=== PATIENT | male | born 1960 | race Caucasian/White ===

== ENCOUNTER → 2016-10-01 13:03 | Day surgery (SDC) | payer OTHER ==
[~2016-10-01 13:03] MED LIST: Buffered Lidocaine 1% SYRIN* 3 ML/SYR SYRINGE INTRADERM ONE; Bupivacaine 0.5% W/EPI SDV* 30 ML VIAL ONE; Dexamethasone IV* 4 MG/ML 1 ML (4 MG) ONE; EPHEDrine (Pressors)* 50 MG/ML VIAL ONE; HYDROcodone/ACETAMIN 5-325 MG* 1 TAB ONE; HYDROcodone/ACETAMIN 5-325 MG* 1 TAB PO PRN; HYDROmorphone* 1 MG/ML 1 ML SYR IV PRN; Lidocaine 2% PF* 5 ML VIAL ONE; Metoclopramide IV* 5 MG/ML 2 ML VIAL IV PRN; Midazolam* 1 MG/ML 2 ML VIAL (2 MG) ONE; Ondansetron INJ* 2 MG/ML VIAL ONE; Propofol* 10 MG/ML 20 ML BTL IV PUSH ONE; Scopolamine 1.5 mg* PATCH TRANSDERM PRN; Succinylcholine* 20 MG/ML 10 ML VIAL ONE; ceFAZolin 2 GM PREMIX(*) 2 GM/50 ML BAG IVPB ONE; fentaNYL* 50 MCG/ML 2 ML VIAL (100 MCG VIAL) IV PRN; fentaNYL* 50 MCG/ML 2 ML VIAL (100 MCG VIAL) ONE; oxyCODONE/Acetamin 5/325 MG* TAB PO PRN
[2016-10-01 19:28] VITALS: BP 123/81
--- NOTE | 2016-10-02 14:51 | OP ---
DATE OF OPERATION: 10/01/16 [facility] DATE OF : 58 SURGEON: Ludin Fung MD VAPOR COATER: LES Em ANESTHESIOLOGIST: Elana Sanders MD ANESTHESIA: General endotracheal. PRE-OP DIAGNOSIS: Bilateral inguinal hernias. POST-OP DIAGNOSES: 1. Bilateral inguinal hernias. 2. Umbilical hernia. OPERATIVE PROCEDURE: Laparoscopic preperitoneal repair of bilateral inguinal hernias with mesh and open repair of umbilical hernia. ESTIMATED BLOOD LOSS: Minimal. IV FLUIDS: Crystalloid. SPECIMEN: None. DRAINS: None. COMPLICATIONS: None. COUNTS: Instrument, needle, and sponge counts were correct. DESCRIPTION OF PROCEDURE: The patient was brought to the operating room, placed on the table supine. Sequential compression devices were placed on both lower extremities. General anesthesia was administered. Hagan catheter was placed. The abdomen was prepped and draped in the usual sterile fashion. A time-out was performed. Local anesthetic was infiltrated into the skin and soft tissue prior to making each incision. The initial incision was a curvilinear infraumbilical incision and after identifying the rectus sheath to the left of midline, the fascia was incised transversely, underlying muscles retracted laterally, and the preperitoneal balloon dissector was positioned down to the pubic symphysis. The 12-mm blunt trocar was then placed in the side and carbon dioxide was inflated to pressure of 12 mmHg. Under direct visualization, two 5-mm trocars were placed in the lower midline of the abdomen. The dissection proceeded initially on the right side identifying the midline, the Morro's ligament, inferior epigastric vessels which were maintained anteriorly. The dissection proceeded laterally and a fairly large indirect inguinal hernia was identified. The peritoneum was dissected and from cord structures. Rents in the peritoneum were closed with endoscopic clip placement. The dissection proceeded laterally all the way to the anterior superior iliac spine. The procedure was repeated on the left side to complete the dissection there. Again, there was noted to be an indirect inguinal hernia. Mesh repair was then performed with the Bard 3DMax mesh using large size patch on each side and securing the mesh at pubic tubercle in the midline. There was overlay of the mesh in the midline. Due to the presence of an umbilical hernia, the umbilical stalk was dissected off the anterior abdominal wall and the hernia defect was identified. It was a 1-cm defect. The carbon dioxide was insufflated into the peritoneal cavity through the 12-mm port so that a peritoneoscopy could be performed and inspection of the inguinal regions revealed the mesh to be in good position with peritoneal coverage with no exposed mesh. Lastly, the port was removed and carbon dioxide was released. The umbilical hernia was closed with 0 Ti- Cron in figure-of-8 fashion. The anterior fascial incision initially created was also closed with 0 Ti-Cron. The umbilical stalk was reapproximated to the anterior abdominal wall with 3-0 Polysorb. The skin incisions were closed with 4-0 Monocryl in subcuticular fashion. Steri-Strips were applied. The patient tolerated the procedure well, was extubated, and transferred to Recovery in a stable condition. CC: Noe Berrios MD* [id number]/[facility] #: [id number] MARISEL
== END | disposition home or self-care (01) ==
LOC: OR 13:03
PROVIDERS: ATTEND Surgery
DX: K40.20 Bilateral inguinal hernia, without obstruction or gangrene, not specified as recurrent (principal); K42.9 Umbilical hernia without obstruction or gangrene
CPT/HCPCS: C1776; C1781; J0330; J0690; J1100; J2250; J2405; J2704; J3010